=== PATIENT | female | born 1980 | race African-American/Black ===

== ENCOUNTER 2022-12-19 07:38 | Emergency (ER) | payer OTHER, SELFPAY ==
--- NOTE | ~2022-12-19 | XR_ITS ---
XR knee LT 3V DATE: 12/19/2022 08:34 INDICATION: Fall onto left knee. Generalized left knee pain. TECHNIQUE: 3 views including crosstable lateral COMPARISON: None FINDINGS: Superior pole patellar enthesopathy at the quadriceps tendon insertion site. Mild periartic ular spurring of the patella consistent with mild patellofemoral osteoarthritis. No fracture or dislocation or joint effusion is detected. No periosteal reaction or bone destruction. Medial and lateral compartment joint spaces are well preserved. No radiopaque intra-articular loose body or chondrocalcinosis. IMPRESSION: No fracture or dislocation or joint effusion Mild patellofemoral osteoarthritis Reviewed, dictated and finalized at location A.
--- NOTE | ~2022-12-19 | XR_ITS ---
XR hip RT 2V w AP pelvis DATE: 12/19/2022 08:34 INDICATION: Fall. Right hip pain. TECHNIQUE: AP pelvis. AP and lateral views of right hip. COMPARISON: None FINDINGS: No pelvic fracture or bone destruction is detected. Normal alignment at the pubic symphysis and sacroiliac joints. Bilateral fallopian tube inserts. No fracture, dislocation, avascular necrosis or bone destruction of the right hip is detected. Hip aron int spaces appear symmetric and well preserved. IMPRESSION: No pelvic or right hip fracture or dislocation Bilateral fallopian tube inserts Reviewed, dictated and finalized at location A.
[2022-12-19 07:46] VITALS: BP 153/89; PULSE 108; RESP 16; TEMP 36.3; O2SAT 100
[2022-12-19] MEDS: KETOROLAC 30 MG/ML VIAL (*BKC) IV PUSH (08:12)
--- NOTE | 2022-12-19 08:19 | PC.NURSE ---
pt to Xray via stretcher at this time
[2022-12-19 09:11] VITALS: BP 154/90; PULSE 76; RESP 18; O2SAT 100
--- NOTE | 2022-12-19 09:33 | ED.FALL ---
HPI - Fall General Chief Complaint: Fall Stated Complaint: Fall Time Seen by Provider: 12/19/22 07:43 History of Present Illness HPI Narrative: Patient is a 42-year-old female who presents ER after a fall. She was at work when she stepped in some water and slipped and fell. She drove her left knee into the ground and also fell onto her right side. She has pain in her right posterior thigh and hip. She also has pain in her left knee where there is an abrasion. She did not strike her head or lose consciousness. She has no lower extremity numbness or tingling. She has been able to ambulate. Related Data Allergies Allergy/AdvReac Type Severity Reaction Status Date / Time No Known Allergies Allergy Verified 12/19/22 07:57 Review of Systems Review of Systems: All systems reviewed & are unremarkable except as noted in HPI and below Musculoskeletal: Musculoskeletal: Denies myalgias, Reports arthralgias, Denies joint swelling and Reports muscle cramps Integumentary/Breasts: Skin/Breast: Denies erythema and Denies rash Comments: Right knee abrasion Neurologic: Denies syncope, Denies headache(s), Denies focal weakness and Denies numbness PMFSH Past Medical History Medical History (Updated 12/19/22 @ 09:45 by Fabiano Stern MD) Hyperlipidemia Hypertension Surgical History Surgical History (Updated 12/19/22 @ 09:40 by Fabiano Stern MD) No pertinent past surgical history Exam Narrative: GENERAL: Well-appearing, well-nourished, and in no acute distress. HEAD: Normocephalic, atraumatic. ENT: Mucous membranes moist. CHEST: Clear to auscultation. No respiratory distress. HEART: Regular rate and rhythm. Normal peripheral pulses. EXTREMITIES: Pain in posterior thigh with passive flexion of the knee and hip. No palpable mass or spasm. Hamstrings intact the knee. No knee effusion on the right or left. Mild abrasion over the left patella. Normal range of motion of the left lower extremity with some crepitus in the left knee. SKIN: Warm, dry, no rash. NEURO: Alert and oriented x3. PSYCH: Normal mood and affect. Course Course Emergency Course: Patient feels improved with Toradol. Informed of imaging results. Discharge home. Vital Signs Vital signs: Vital Signs Temperature 97.4 F L 12/19/22 07:46 Pulse Rate 108 H 12/19/22 07:46 Respiratory Rate 16 12/19/22 07:46 Blood Pressure 153/89 H 12/19/22 07:46 Pulse Oximetry 100 12/19/22 07:46 Oxygen Delivery Room Air 12/19/22 07:46 Temperature 97.4 F L 12/19/22 07:46 Pulse Rate 76 12/19/22 09:11 Respiratory Rate 18 12/19/22 09:11 Blood Pressure 154/90 H 12/19/22 09:11 Pulse Oximetry 100 12/19/22 09:11 Oxygen Delivery Room Air 12/19/22 07:46 MDM - Fall Imaging Data Radiologist's impression: ITS Impressions Hip/Pelvis X-Ray 12/19/22 08:37 IMPRESSION: No pelvic or right hip fracture or dislocation Bilateral fallopian tube inserts Knee X-Ray 12/19/22 08:39 IMPRESSION: No fracture or dislocation or joint effusion Mild patellofemoral osteoarthritis Discharge Plan Discharge Clinical Impression: Leg strain Patient Disposition: Home, Self-Care Condition: Stable Instructions: Knee Pain (ED) Additional Instructions: Return the ER if you have been drinking interesting symptoms of breath, you have a red/swollen leg, you have additional concerns. Use your home tizanidine in addition to the anti-inflammatory as prescribed. Prescriptions: New naproxen 500 mg tablet 500 mg PO BID Qty: 14 0RF Follow-up/Referrals: Herve,Vince Anand MD [Primary Care Provider] - 1 Week
[2022-12-19 09:50] VITALS: BP 148/92; PULSE 72; RESP 18; O2SAT 100
== END 2022-12-19 09:55 | disposition home or self-care (01) ==
PROVIDERS: Emergency Provider Emergency Medicine; PCP Internal Medicine
DX: S76.912A Strain of unspecified muscles, fascia and tendons at thigh level, left thigh, initial encounter (principal); E78.5 Hyperlipidemia, unspecified; I10 Essential (primary) hypertension; M17.12 Unilateral primary osteoarthritis, left knee; W01.0XXA Fall on same level from slipping, tripping and stumbling without subsequent striking against object, initial encounter
CPT/HCPCS: 73502; 73562; 96374; 99284; J1885